=== PATIENT | male | born 1980 | race Hispanic/Latino ===

== ENCOUNTER 2017-09-13 23:07 | Emergency (ER) | payer MEDICAID ==
[2017-09-13 23:07] VITALS: BMI 41.5
[2017-09-13 23:24] VITALS: RESP 18; TEMP 97.8
--- NOTE | 2017-09-14 00:03 | ED PDOC ---
Arrival/HPI <Jerry Peters - Last Filed: 09/14/17 01:27> - General Historian: Patient <Rommel Austin - Last Filed: 09/14/17 02:38> - General Chief Complaint: Lower Extremity Problem/Injury Time Seen by Provider: 09/13/17 23:11 - History of Present Illness Narrative History of Present Illness (Text): 09/14/17 00:25 37 yo M with no PMH who presents with complaint of worsening R thigh varicose veins. Saw his PMD (Dr. Cristino Aguirre) approx 1 month prior for this, was told unremarkable and nothing to be done at that time. Today, while showering, pt noted additional varicose veins, spread further down his leg, and became concerned, believing they should not extend this far in 1 month. Denies chronic pain at site, erythema/swelling/tenderness, denies any signs or symptoms consistent with cellulitis; denies chest pain, shortness of breath, fevers, chills, nausea, emesis, dysuria, constipation, diarrhea. All other ROS in 12-system review negative. PMH: denies PSH: tonsils as child only Fam Hx: substance and alcohol abuse hx in multiple family members, denies vascular or coagulopathy fam hx Soc Hx: former tobacco (intermittently, ~5 yrs total smoking, 1ppd, quit 13 yrs ago), denies alcohol or illicits PMD: Dr. Cristino Aguirre (Rommel Austin) Past Medical History - Provider Review Nursing Documentation Reviewed: Yes - Infectious Disease Hx of Infectious Diseases: None - Musculoskeletal/Rheumatological Hx Falls: No - Psychiatric Hx Depression: No Hx Emotional Abuse: No Hx Physical Abuse: No Hx Substance Use: No - Suicidal Assessment Feels Threatened In Home Enviroment: No <Rommel Austin - Last Filed: 09/14/17 02:38> Family/Social History - Physician Review Nursing Documentation Reviewed: Yes Family/Social History: Other (multiple family members with alcohol and/or substance abuse hx) Smoking Status: Former Smoker Hx Alcohol Use: No Hx Substance Use: No Hx Substance Use Treatment: No <Rommel Austin - Last Filed: 09/14/17 02:38> Allergies/Home Meds <Jerry Peters - Last Filed: 09/14/17 01:27> <Rommel Austin - Last Filed: 09/14/17 02:38> Allergies/Adverse Reactions: Allergies No Known Allergies Allergy (Verified 03/03/12 14:03) Home Medications: Home Meds Medication Instructions Recorded Confirmed Esomeprazole Magnesium [Nexium] 40 mg PO DAILY PRN 03/03/12 09/13/17 Review of Systems - Physician Review All systems were reviewed & negative as marked: Yes (as per HPI) - Review of Systems Constitutional: Normal. absent: Fatigue, Fevers Eyes: Normal. absent: Vision Changes ENT: Normal. absent: Sore Throat, Rhinorrhea, Epistaxis, Sinus Congestion Respiratory: Normal. absent: SOB, Cough Cardiovascular: Normal. absent: Chest Pain, CASTRO, Syncope Gastrointestinal: Normal. absent: Abdominal Pain, Nausea, Vomiting Genitourinary Male: Normal. absent: Dysuria, Frequency, Hematuria Musculoskeletal: Normal. absent: Back Pain, Neck Pain Skin: Other (worsening varicose veins decscending from right prox medial thigh down toward knee) Neurological: Normal. absent: Headache, Dizziness Endocrine: Normal. absent: Diaphoresis <Rommel Austin - Last Filed: 09/14/17 02:38> Physical Exam <Jerry Peters - Last Filed: 09/14/17 01:27> Vital Signs Reviewed: Yes Temperature: Afebrile Blood Pressure: Hypertensive Pulse: Other (Tachy on initial vitals, normocardic at time of exam) Respiratory Rate: Normal Appearance: Positive for: Well-Appearing, Non-Toxic, Comfortable Pain Distress: None Mental Status: Positive for: Alert and Oriented X 3 - Systems Exam Head: Present: Atraumatic, Normocephalic Pupils: No: Pinpoint Extroacular Muscles: Present: EOMI Conjunctiva: Present: Normal. No: Injected, Icteric Mouth: Present: Moist Mucous Membranes, Normal Lips, Normal Tounge, Normal Teeth. No: Dry, Drooling Nose (External): Present: Atraumatic. No: Abrasion, Laceration Nose (Internal): Present: No Active Bleeding. No: Epistaxis Neck: Present: Normal Range of Motion, Trachea Midline. No: MIDLINE TENDERNESS , JVD Respiratory/Chest: Present: Clear to Auscultation, Good Air Exchange. No: Respiratory Distress, Accessory Muscle Use, Wheezes, Decreased Breath Sounds, Rales, Rhonchi, Tachypneic Cardiovascular: Present: Regular Rate and Rhythm, Normal S1, S2, Peripheal Pulses Present (+2 radials and poterior tibials bilaterally). No: Murmurs, Irregular Rhythm, Tachycardic, Bradycardic Abdomen: Present: Normal Bowel Sounds. No: Tenderness, Distention Upper Extremity: Present: Normal Inspection, Normal ROM, NORMAL PULSES. No: Cyanosis, Edema, Tenderness, Swelling, Erythema, Deformity Lower Extremity: Present: NORMAL PULSES, Normal ROM, Tenderness (at initial site of varicosities along medial proximal right thigh, only tender at site, no tenderness to palpation anywhere else in thigh, no deep tenderness to palpation) , Other (varicose veins along ). No: Edema, CALF TENDERNESS, Cyanosis, Swelling , Erythema Neurological: Present: GCS=15, Speech Normal, Motor Func Grossly Intact, Normal Sensory Function Skin: Present: Warm, Dry, Normal Color. No: Rashes Psychiatric: Present: Alert, Oriented x 3, Normal Insight, Normal Concentration , Normal Affect, Normal Mood <Rommel Austin - Last Filed: 09/14/17 02:38> Vital Signs Temp Pulse Resp BP Pulse Ox 09/13/17 23:24 97.8 F 101 H 18 146/100 H 97 Medical Decision Making <Jerry Peters - Last Filed: 09/14/17 01:27> Reassessment Condition: Re-examined, Unchanged <Rommel Austin - Last Filed: 09/14/17 02:38> ED Course and Treatment: 09/14/17 01:26 Deep Elizabeth is a 37 year old male, who presents to the emergency department for a complaint of worseing right thigh varicose vein. In agreement with resident note, which includes further HPI details. Patient was seen and evaluated with resident, came up with plan and treatment together. (Jerry Peters) 09/14/17 00:45 Ddx: worsening varicose veins, r/o DVT unlikely DVT, but will obtain Duplex to rule out DVT due to point tenderness If no DVT, will d/c home with instructions to follow up with PMD, Motrin as needed for tenderness 09/14/17 02:36 negative for DVT bilaterally, will send home. instructed to use motrin as needed for pain in varicose veins Follow up with PMD in 1-2 weeks. Patient expressed understanding and agreement, discharged to home. Seen, reviewed, and discussed with attending, Dr. Peters (Rommel Austin) - RAD Interpretation Radiology Orders: 09/14/17 00:02 DUPLEX LOWER EXTRM VEIN BILAT [US] Stat - PA / [employer] / Resident Statement VERONIKA has reviewed & agrees with the documentation as recorded. VERONIKA has examined the patient and agrees with the treatment plan. - Scribe Statement The provider has reviewed the documentation as recorded by the Scribe <Jerry Peters - Last Filed: 09/14/17 01:27> <Rommel Austin - Last Filed: 09/14/17 02:38> - Scribe Statement Destiny Jay Provider Scribe Attestation: All medical record entries made by the Scribe were at my direction and personally dictated by me. I have reviewed the chart and agree that the record accurately reflects my personal performance of the history, physical exam, medical decision making, and the department course for this patient. I have also personally directed, reviewed, and agree with the discharge instructions and disposition. (Jerry Peters) Disposition/Present on Arrival <Jerry Peters - Last Filed: 09/14/17 01:27> - Present on Arrival Any Indicators Present on Arrival: No History of DVT/PE: No History of Uncontrolled Diabetes: No Urinary Catheter: No History of Decub. Ulcer: No History Surgical Site Infection Following: None - Disposition Have Diagnosis and Disposition been Completed?: Yes Disposition Time: 02:37 Patient Plan: Discharge <Rommel Austin - Last Filed: 09/14/17 02:38> - Disposition Diagnosis: Varicose vein of leg Disposition: HOME/ ROUTINE Patient Problems: Current Active Problems Problem Status Onset Varicose vein of leg Acute Condition: GOOD Discharge Instructions (ExitCare): Varicose Veins (DC) Additional Instructions: DEEP ELIZABETH, thank you for letting us take care of you today. Your providers were Jerry Peters MD and Rommel Austin DO, and you were treated for PAINFUL THIGH. The emergency medical care you received today was directed at your acute symptoms. Please take Motrin as needed (as instructed on the bottle) if you experience pain with your varicose veins. It may take several days for your symptoms to resolve. Return to the Emergency Department if your symptoms worsen, do not improve, or if you have any other problems. Please follow up with your primary doctor (Dr. Aguirre) within 1-2 weeks of discharge. Bring any paperwork you were given at discharge with you along with any medications you are taking to your follow up visit. Our treatment cannot replace ongoing medical care by a primary care provider outside of the emergency department. Thank you for allowing the [facility] team to be part of your care today. The vascular study of your legs was negative for clot in the veins (DVT). If you had an X-Ray or CT scan: A Radiologist will review the ED reading if any change in treatment is needed we will contact you. If you had a blood, urine, or wound culture: It will take several days for the results, if any change in treatment is needed we will contact you. If you had an STI test: It will take 48 hours for the results. Please call after 1 week if you have not heard back. Referrals: Darryl Aguirre MD [Primary Care Provider] - Follow up with primary Forms: [employer] ([place])
[2017-09-14 03:18] VITALS: BP 135/77; PULSE 88; O2SAT 100
--- NOTE | 2017-09-15 17:49 | US ---
HISTORY: Leg pain and swelling. Evaluate for DVT PHYSICIAN(S): John Badillo MD. TECHNIQUE: Duplex sonography and color-flow Doppler with graded compression were used to evaluate the deep venous systems of both lower extremities. FINDINGS: The visualized deep venous systems of both lower extremities are sonographically normal and compressible. Normal wave forms and augmentation are seen. There is no sonographic evidence for deep venous thrombosis in the visualized segments of both lower extremities. IMPRESSION: No sonographic evidence for deep venous thrombosis in the visualized segments of both lower extremities.
== END 2017-09-14 03:15 | disposition home or self-care (01) ==
LOC: ED 23:07
DX: I83.91 Asymptomatic varicose veins of right lower extremity (principal); Z87.891 Personal history of nicotine dependence